=== PATIENT | male | born 1975 | race Caucasian/White ===

== ENCOUNTER 2023-11-23 15:40 | Emergency (ER) | payer SELFPAY ==
[2023-11-23 16:13] VITALS: BP 133/86; PULSE 97; RESP 16; TEMP 36.4; O2SAT 100
--- NOTE | 2023-11-23 17:22 | ED.GENADULT ---
HPI - General Adult General Chief complaint: Environmental Exposure <AL Burton Last Filed: 11/23/23 17:29> Stated complaint: overheated <AL Burton Last Filed: 11/23/23 17:29> Time Seen by Provider: 11/23/23 17:22 <AL Burton Last Filed: 11/23/23 17:29> Focused HPI: Patient is a 48 y/o male who presents to the ED with concern for heat exhaustion. Patient reports he was at work today in fair condition building, but began feeling very overheated. He states he was drinking plenty of water, but began having headache. He went to the break room to get some ibuprofen but continued to feel overheated and then began vomiting. He reports he was unable to keep down fluids at that time and began having diffuse cold sweats. He was then brought here for further evaluation. Patient is feeling improved currently. Denies current nausea. Denies dizziness, lightheadedness, LOC, abdominal pain, chest pain, shortness of breath, focal weakness or numbness. GENERAL: Well-appearing, well-nourished, and in no acute distress. HEAD: Normocephalic, atraumatic. ENT: MMs dry. CHEST: Clear to auscultation. ?No respiratory distress. HEART: Regular rate and rhythm.? NEURO: ?Alert and oriented x3. Patient screened in triage and initial orders placed.? ?Additional care and disposition to be based upon?diagnostic testing and treatment. <AL Burton Last Filed: 11/23/23 17:29> Source: patient <AL Burton Last Filed: 11/23/23 17:29> Mode of arrival: ambulatory <AL Burton Last Filed: 11/23/23 17:29> Limitations: no limitations <AL Burton Last Filed: 11/23/23 17:29> Related Data Allergies/adverse reactions: Allergies Allergy/AdvReac Type Severity Reaction Status Date / Time No Known Allergies Allergy Verified 11/23/23 19:07 <AL Burton Last Filed: 11/23/23 17:29> Review of Systems Review of Systems: All systems as dictated in HPI <AL Becerra Last Filed: 11/23/23 21:43> Exam Narrative: GENERAL: Well-appearing, well-nourished, and in no acute distress. HEAD: Normocephalic, atraumatic. EYES: PERRLA and EOMI. ENT: Nares clear, no rhinorrhea or epistaxis. Mucous membranes moist. Oropharynx without tonsillar hypertrophy exudate or other lesions. NECK: Supple. No adenopathy or masses. CHEST: No respiratory distress. Clear to auscultation. No wheezes rales or rhonchi HEART: Regular rate and rhythm. No murmur heard. Normal peripheral pulses. ABDOMEN: Soft, nontender, nondistended, normal active bowel sounds. MSK: Normal range of motion. No edema. SKIN: Warm, dry, no rash. NEURO: Alert and oriented x4. No focal deficits. PSYCH: Normal mood and affect. <AL Becerra Last Filed: 11/23/23 21:43> Course Course Emergency Course: IRINEO: evaluate the patient. He states that he is feeling asymptomatic at this point. He has received some fluids. Headache has completely resolved. <AL Becerra Last Filed: 11/23/23 21:43> Vital Signs Vital signs: Vital Signs Temperature 97.6 F 11/23/23 16:13 Pulse Rate 97 11/23/23 16:13 Respiratory Rate 16 11/23/23 16:13 Blood Pressure 133/86 11/23/23 16:13 Pulse Oximetry 100 11/23/23 16:13 Oxygen Delivery Room Air 11/23/23 16:13 Temperature 97.6 F 11/23/23 16:13 Pulse Rate 68 11/23/23 19:45 Respiratory Rate 14 11/23/23 19:45 Blood Pressure 142/98 H 11/23/23 19:45 Pulse Oximetry 100 11/23/23 19:45 Oxygen Delivery Room Air 11/23/23 16:13 <AL Burton Last Filed: 11/23/23 17:29> Vital Signs Temperature 97.6 F 11/23/23 16:13 Pulse Rate 97 11/23/23 16:13 Respiratory Rate 16 11/23/23 16:13 Blood Pressure 133/86 11/23/23 16:13 Pulse Oximetry 100 11/23/23 16:13 Oxygen Delivery Room Air 07
--- NOTE | 2023-11-23 17:24 | ECG_ITS ---
Test Date: 2023-11-23 19:10:21 Measurements Intervals [place] Rate: 56 P: 61 PA: 224 QRS: 42 QRSD: 94 T: 63 QT: 409 QTc: 397 Interpretive Statements SINUS BRADYCARDIA WITH FIRST DEGREE AV BLOCK BASELINE ARTIFACT- I, II, III, AVR, AVL, AVF BORDERLINE ECG No previous ECG available for comparison Electronically Signed On 11-23-2023 20:37:32 CDT by Jose Adams D.O.
[2023-11-23 17:38] LABS: Basophils Percent Auto 0.2 % (0.2-1.2); Hemoglobin 14.4 g/dL (14.0-18.0); Immature Granulocyte Absolute 0.03 K/mm3 (0.00-0.031); Immature Granulocyte Percent A 0.3 % (0-0.5); Lymphocytes Absolute Auto 0.98 K/mm3 (0.9-3.2); Lymphocytes Percent Auto 8.8 % (18.3-44.2); Mean Corpuscular HGB Conc 35.1 g/dl (32-36); Mean Corpuscular Volume 88.4 fl (80-100); Mean Platelet Volume 10.2 fl (7.4-10.4); Monocytes Absolute Auto 0.4 K/mm3 (0.1-0.6); Monocytes Percent Auto 3.7 % (2.6-8.5); Neutrophils Absolute Auto 9.7 K/mm3 (1.3-6.7); Platelet Count Result 233 k/mm3 (150-375); Red Blood Count 4.64 M/mm3 (4.6-6.20); Red Cell Distribution Width 13.1 % (11.5-14.5); White Blood Count 11.1 K/mm3 (4.5-10.0)
[2023-11-23 17:48] LABS: Alanine Aminotransferase 19 U/L (6-50); Albumin Level 4.7 g/dL (3.5-5.1); Alkaline Phosphatase 74 U/L (38-126); Anion Gap 10 mmol/L (4-12); Aspartate Amino Transferase 26 U/L (17-59); Bilirubin,Total 1.3 mg/dL (0.2-1.3); Blood Urea Nitrogen 17 mg/dL (9-20); Calcium 8.8 mg/dL (8.4-10.2); Carbon Dioxide 31 mmol/L (22-30); Chloride 100 mmol/L (98-107); Creatine Kinase 130 U/L (55-170); Estimated CRCL calculation 92 ml/min; Estimated Glomerular Filt Rate > 60; Glucose 107 mg/dL (65-110); Magnesium 2.4 mg/dL (1.6-2.3); Potassium 3.4 mmol/L (3.4-5.0); Sodium 141 mmol/L (137-145)
[2023-11-23 19:00] VITALS: BP 148/104; PULSE 67; RESP 18; O2SAT 99
[2023-11-23] MEDS: SODIUM CHLORIDE 0.9% IV 1,000 ML 999 ML IV CONT (19:04)
[2023-11-23 19:06] VITALS: BP 148/104; PULSE 70; RESP 12; O2SAT 100
[2023-11-23 19:22] LABS: Add Urine Microscopic? YES; Appearance Urine Cloudy (Clear); Bacteria Urine None Seen /hpf; Bilirubin Urine Negative (Negative); Blood Urine Negative (Negative); Color Urine Dark Yellow (Yellow); Glucose Urine UA Negative (Negative); Hyaline Casts Urine Present /lpf; Ketones Urine 1+ mg/dL (Negative); Leukocyte Esterase Ur Negative LEU/UL (Negative); Nitrate Urine Negative (Negative); Non Pathogenic Casts >20; Protein Urine 1+ mg/dL (Negative); RBC Urine 0-2 /hpf (0-2); Specific Grav Ur 1.025 (1.001-1.035); Squamous Epithelial Cell Urine None Seen /hpf (Few); WBC Urine 0-5 /hpf (0-3); pH Urine 5.5 (5.0-9.0)
[2023-11-23 19:45] VITALS: BP 142/98; PULSE 68; RESP 14; O2SAT 100
== END 2023-11-23 19:45 | disposition home or self-care (01) ==
LOC: ANHED 19:22
PROVIDERS: Physician Assistant; Emergency Provider Physician Assistant
DX: T67.5XXA Heat exhaustion, unspecified, initial encounter (principal); R00.1 Bradycardia, unspecified; I44.0 Atrioventricular block, first degree; X30.XXXA Exposure to excessive natural heat, initial encounter
CPT/HCPCS: 36415; 80053; 81001; 82550; 83735; 85025; 93005; 96360; 99283; J7030